=== PATIENT | female | born 1965 | race Caucasian/White ===

== ENCOUNTER 2016-10-20 20:21 | Emergency (ER) | payer OTHER ==
[~2016-10-20] VITALS: Ht 175.3 cm; Wt 98.0 kg
[2016-10-20 20:25] VITALS: BP 150/95
== END 2016-10-20 23:52 | disposition left against medical advice (07) ==
LOC: ER 20:29
DX: R21 Rash and other nonspecific skin eruption (principal); Z53.21 Procedure and treatment not carried out due to patient leaving prior to being seen by health care provider

== ENCOUNTER 2024-12-15 05:36 | Emergency (ER) | payer OTHER ==
[~2024-12-15] VITALS: Ht 175.3 cm; Wt 134.0 kg
[2024-12-15 05:37] VITALS: BP 183/98; PULSE 118; RESP 20; TEMP 99.6; O2SAT 96
== END 2024-12-15 06:27 | disposition left against medical advice (07) ==
LOC: ER 05:36
DX: N39.0 Urinary tract infection, site not specified (principal); Z53.21 Procedure and treatment not carried out due to patient leaving prior to being seen by health care provider